=== PATIENT | female | born 1995 ===

== ENCOUNTER 2017-02-04 14:49 | Emergency (ER) | payer OTHER ==
[2017-02-04 14:56] VITALS: BP 109/59; PULSE 76; RESP 16; TEMP 97; O2SAT 97
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
--- NOTE | 2017-02-04 17:11 | RAD ---
PROCEDURE: Cervical Spine Radiographs. HISTORY: Pain. COMPARISON: None. FINDINGS: BONES: Alignment maintained. No fracture. Dens Intact. DISC SPACES: Normal. SOFT TISSUES: Normal. No prevertebral soft tissue swelling. OTHER FINDINGS: None. IMPRESSION: Unremarkable cervical spine radiographs Concordant results with the preliminary interpretation rendered by the emergency department physician procedure.
== END 2017-02-04 17:04 | disposition home or self-care (01) ==
LOC: H.ER 14:49
DX: S16.1XXA Strain of muscle, fascia and tendon at neck level, initial encounter (principal); V43.62XA Car passenger injured in collision with other type car in traffic accident, initial encounter; Y92.410 Unspecified street and highway as the place of occurrence of the external cause